=== PATIENT | male | born 1970 | race Caucasian/White ===

== ENCOUNTER 2021-08-31 09:04 | Outpatient (REF) | payer OTHER, SELFPAY ==
[2021-08-31 11:31] LABS: Hemoglobin 15.8 g/dl (14.0-18.0); Mean Corpuscular HGB Conc 34.3 g/dl (31.0-36.0); Mean Corpuscular Hemoglobin 31.6 pg (27.0-33.0); Mean Platelet Volume 10.4 fL (9.4-12.4); Platelet Count 227 X10*3/uL (160-400); Red Cell Distribution Width 13.7 % (11.0-16.0); White Blood Count 5.9 X10*3/uL (4.8-10.8)
[2021-08-31 12:04] LABS: Alanine Aminotransferase 50 U/L (0-40); Alkaline Phosphatase 49 U/L (39-117); Anion Gap 11 (12-20); Aspartate Amino Transferase 38 U/L (5-37); Bilirubin Total 0.7 mg/dL (0.0-1.0); Blood Urea Nitrogen 18 mg/dL (9-16); Calcium 10.4 mg/dL (8.4-10.2); Carbon Dioxide 29 mmol/L (22-29); Chloride 103 mmol/L (96-108); Estimated Glomerular Filt Rate > 60; Glucose Random 99 mg/dL (60-115); Potassium 4.3 mmol/L (3.3-5.1); Sodium 139 mmol/L (135-145); Total Protein 7.9 g/dL (6.5-8.0)
[2021-08-31 12:28] LABS: Albumin Level 4.7 g/dL (3.5-5.0)
== END 2021-08-31 09:05 | disposition home or self-care (01) ==
LOC: HO.LAB 09:04
PROVIDERS: PCP Family Medicine; Referring Provider Family Medicine; Visit Provider Nurse Practitioner Family
DX: Z01.818 Encounter for other preprocedural examination (principal)
CPT/HCPCS: 36415; 80053; 85027

== ENCOUNTER 2021-12-09 06:42 | Day surgery (SDC) | payer OTHER, SELFPAY ==
[2021-12-06 12:32] VITALS: BMI 29.7
--- NOTE | 2021-12-08 09:30 | P.CONAN_ITS ---
Documented by User: Raisa Guevara NP 12/08/21 09:31 HPI - Anesthesia Eval Consult details Narrative: 51yo M for Colonoscopy [facility] Past Medical History Medical History (Updated 12/09/21 @ 08:02 by Esther Kramer RN) Asthma HTN (hypertension) Family History Family History Father Diabetes HTN (hypertension) Mother Complication of surgery Social History Social History (Updated 08/31/21 @ 09:29 by Abby Chaparro) Alcohol intake: current Alcohol intake frequency: holidays/special occasions only Patient Tobacco Use Status: Never used Tobacco Meds Allergies Allergy/AdvReac Type Severity Reaction Status Date / Time seafood Allergy Intermediate Hives Verified 12/09/21 07:48 Home Medications Medication Instructions Recorded Confirmed Last Taken Type albuterol sulfate 90 mcg/actuation 2 puff INHALATION QID 08/30/21 Unknown History aerosol inhaler (ProAir HFA) cholecalciferol (vitamin D3) 50 50 mcg PO DAILY 08/30/21 Unknown History mcg (2,000 unit) capsule fluticasone propionate 50 1 spray INTRANASAL DAILY 08/30/21 Unknown History mcg/actuation nasal spray,suspension (Flonase Allergy Relief) lisinopril 20 mg tablet 20 mg PO DAILY 08/30/21 12/09/21 History loratadine 10 mg tablet (Claritin) 10 mg PO DAILY 08/30/21 Unknown History Exam Exam Date and Time: December 08, 2021 0930 Height,Weight and Vital Signs: Height 5 ft 10 in Weight 93.894 kg Pertinent Lab Results Pertinent Lab Results: Laboratory Tests 08/31/21 08/31/21 10:32 10:32 WBC 5.9 Hgb 15.8 Hct 46.0 Plt Count 227 Sodium 139 Potassium 4.3 Chloride 103 Carbon Dioxide 29 BUN 18 H Creatinine 1.01 Assessment and Plan Assessment Anesthesia Assessment: Chart Reviewed Documented by User: Dion Colunga MD 12/09/21 16:46 [facility] Past Medical History Medical History (Updated 12/09/21 @ 08:02 by Esther Kramer, MAIRA) Asthma HTN (hypertension) Functional capacity: independent ambulation Family History Family History Father Diabetes HTN (hypertension) Mother Complication of surgery Family history of problems with anesthesia: No Surgical History History of Problems with Anesthesia: No Social History Social History (Updated 08/31/21 @ 09:29 by Abby Chaparro) Alcohol intake: current Alcohol intake frequency: holidays/special occasions only Patient Tobacco Use Status: Never used Tobacco Meds Allergies Allergy/AdvReac Type Severity Reaction Status Date / Time seafood Allergy Intermediate Hives Verified 12/09/21 07:48 Home Medications Medication Instructions Recorded Confirmed Last Taken Type albuterol sulfate 90 mcg/actuation 2 puff INHALATION QID 08/30/21 Unknown History aerosol inhaler (ProAir HFA) cholecalciferol (vitamin D3) 50 50 mcg PO DAILY 08/30/21 Unknown History mcg (2,000 unit) capsule fluticasone propionate 50 1 spray INTRANASAL DAILY 08/30/21 Unknown History mcg/actuation nasal spray,suspension (Flonase Allergy Relief) lisinopril 20 mg tablet 20 mg PO DAILY 08/30/21 12/09/21 History loratadine 10 mg tablet (Claritin) 10 mg PO DAILY 08/30/21 Unknown History Exam Airway Mallampati Class: II TM Dist: >3cm Neck ROM: Full Loose/Missing/Broken Teeth: Yes (Cavities , poor dentation ) Heart: RRR Lungs: b/l breath sounds Assessment and Plan Assessment Anesthesia Assessment: Anesthesia Plan Discussed Final Anesthetic Review Family History of Problems with Anesthesia: No History of Problems with Anesthesia: No NPO: Yes ASA Class: II Final Preanesthetic Review: Meds/Allgs Chart Reviewed, Consent Obtained/Reviewed and Anes Risks/Benef Reviewed Patient Risk: Intermediate Procedure Risk: Intermediate Anesthetic Plan Anesthetic Plan: MAC: Disposition: Standard PACU
--- NOTE | 2021-12-09 07:18 | P.HPSUR_ITS ---
Pre-Procedural Eval Section A Date of Service: 12/09/21 Section B Chief Complaint: screening Relevant Family History (Specify if Yes): No Relevant Social History: None Present Medications: see Short Stay Collaborative assessment Medical History: Significant History (Asthma HTN (hypertension)) History of Previous Operations: No relevant previous surgery Allergies: Allergies Allergy/AdvReac Type Severity Reaction Status Date / Time No Known Allergies Allergy Verified 08/31/21 09:19 Review of Systems Sugical H&P ROS: Negative: Constitution, Cardiovascular, Respiratory, Neurological, Psychiatric, Hem-Onc, Allergic/Immunologic, Gastrointestinal, Genitourinary, Musculoskeletal, Integumentary, Endocrine and Eyes/Ears/Nose/Throat Exam Surgical H&P Exam: Normal: HEENT, Normal: Heart, Normal: Lungs, Normal: E xtremities, Normal: Abdomen, Normal: Skin and Normal: Neurological Plan Diagnosis/Plan: Unchanged I have reviewed the history and physical and performed a pertinent physical examination on my patient. No changes have occurred unless specified.
[2021-12-09 07:35] VITALS: BMI 29.1
[2021-12-09 07:39] VITALS: BP 127/72; PULSE 67; RESP 18; TEMP 36.9; O2SAT 98
[2021-12-09] MEDS: Lactated Ringers 1,000 ML 100 ML IVCONT (08:03)
--- NOTE | 2021-12-09 08:53 | P.OP_ITS ---
Operative Note Operative Note Date of Service: 12/09/21 Narrative: Operative Information Procedure Description: Colonoscopy Indication: screening Anesthesia: MAC COLONOSCOPY Instrument: Olympus variable stiffness pediatric scope 190L Colonoscopy Monitoring: Vital signs and clinical assessment, continuous EKG monitoring, Pulse oximetry, Carbon Dioxide monitoring and blood pressure monitoring were done throughout the procedure. Colon withdrawal time was 7 minutes. Procedure: The patient was placed in the left lateral decubitis position and pre-procedure medications were administered. After a digital rectal examination of the ano-rectum, the video colonoscope was inserted into the rectum and advanced through the colon to the cecum/TI. The colonoscope was slowly withdrawn in a retrograde panoramic fashion and the colon mucosa was carefully examined including a retroflexed view of the rectum. Findings and interventions are described below. Procedure Difficulty: easy Findings: Terminal Ileum-normal right sided retroflexion was normal Cecum:normal Ascending Colon: normal Transverse Colon -normal Descending Colon:normal Sigmoid Colon: normal Rectum: Retroflexion with small internal hemorrhoids, grade I Anorectum - normal Colon preparation: Wil[place] Bowel Preparation Scale Right colon; 3 Transverse colon: 2 Left colon; 3 (0 = Unprepared colon segment with mucosa not seen due to solid stool that cannot be cleared. 1 = Portion of mucosa of the colon segment seen, but other areas of the colon segment not well seen due to staining, residual stool and/or opaque liquid. 2 = Minor amount of residual staining, small fragments of stool and/or opaque li quid, but mucosa of colon segment seen well. 3 = Entire mucosa of colon segment seen well with no residual staining, small fragments of stool or opaque liquid) Impression and Post Procedure Diagnosis: internal hemorrhoids Plan: High fiber diet leaflet Avoid straining at stool, epsom salts and sitz bath, anusol supps or cream Repeat Colonoscopy in 10 years or earlier if clinically indicated Above findings were reviewed with the patient and relevant handouts were provided if indicated.
--- NOTE | 2021-12-09 08:53 | PM.OP ---
Brief Operative Note Date of Service: 12/09/21 Pre-op diagnosis: screening colonoscopy Post-op diagnosis: same Procedure: see op note Surgeon: Ric Trevino MD Anesthesia: MAC Was an Digital Media Buyer used for this Procedure?: No Estimated blood loss (mL): 0 Condition: stable Disposition: PACU
[2021-12-09 09:20] VITALS: BP 81/51; PULSE 88; RESP 16; TEMP 36.6; O2SAT 97
[2021-12-09 09:35] VITALS: BP 102/64; PULSE 82; RESP 16; TEMP 36.6; O2SAT 97
== END 2021-12-09 10:10 | disposition home or self-care (01) ==
PROVIDERS: PCP Family Medicine; Visit Provider Internal Medicine Gastroenterology
PROC: 0DJD8ZZ Inspection of Lower Intestinal Tract, Via Natural or Artificial Opening Endoscopic (ICD-10-PCS; CPT 45378; principal; 2021-12-09 08:30)
DX: Z12.11 Encounter for screening for malignant neoplasm of colon (principal); K64.0 First degree hemorrhoids; J45.909 Unspecified asthma, uncomplicated; I10 Essential (primary) hypertension; Z79.899 Other long term (current) drug therapy
CPT/HCPCS: 45378

== ENCOUNTER → 2021-12-27 14:06 | Outpatient (BNVA) | payer OTHER, SELFPAY | PROVIDERS: PCP Family Medicine; Referring Provider Family Medicine; Visit Provider Nurse Practitioner Family | DX: Z13.89 Encounter for screening for other disorder (principal) ==

== ENCOUNTER 2023-09-01 10:52 | Outpatient (REF) | payer OTHER, SELFPAY | END 2023-09-01 10:53 | disposition home or self-care (01) | LOC: HO.HHCL 10:52 | PROVIDERS: Visit Provider Family Medicine | DX: Z11.1 Encounter for screening for respiratory tuberculosis (principal) | CPT/HCPCS: 36415; 86481 ==

== ENCOUNTER 2023-09-07 11:57 | Outpatient (REF) | payer OTHER, SELFPAY | END 2023-09-07 11:58 | disposition home or self-care (01) | LOC: HO.HHCL 11:57 | PROVIDERS: Visit Provider Family Medicine | DX: Z00.00 Encounter for general adult medical examination without abnormal findings (principal) | CPT/HCPCS: 36415; 86481 ==

== ENCOUNTER 2024-01-30 09:21 | Outpatient (REF) | payer OTHER, SELFPAY ==
[2024-01-30 11:55] LABS: Hematocrit 46.9 % (42.0-52.0); Hemoglobin 15.9 g/dl (14.0-18.0); Mean Corpuscular HGB Conc 33.9 g/dl (31.0-36.0); Mean Corpuscular Hemoglobin 31.9 pg (27.0-33.0); Mean Platelet Volume 10.8 fL (9.4-12.4); Platelet Count 195 X10*3/uL (160-400); Red Blood Count 4.99 X10*6/uL (4.60-5.80); Red Cell Distribution Width 13.8 % (11.0-16.0); White Blood Count 6.8 X10*3/uL (4.8-10.8)
[2024-01-30 12:08] LABS: Estimated Average Glucose 111 mg/dL; Hemoglobin A1c % 5.5 % (<6.0)
[2024-01-30 12:27] LABS: Alanine Aminotransferase 31 U/L (0-40); Albumin Level 4.8 g/dL (3.5-5.0); Alkaline Phosphatase 44 U/L (39-117); Anion Gap 15 (12-20); Aspartate Amino Transferase 23 U/L (5-37); Bilirubin Direct 0.2 mg/dL (0.0-0.5); Bilirubin Total 0.8 mg/dL (0.0-1.0); Blood Urea Nitrogen 18 mg/dL (9-16); Carbon Dioxide 29 mmol/L (22-29); Chloride 100 mmol/L (96-108); Cholesterol 212 mg/dL (<200); Creatinine Urine 52.43 mg/dL; Estimated Glomerular Filt Rate > 60; Free T4 (Free Thyroxine) 0.79 ng/dL (0.71-1.85); Glucose Random 117 mg/dL (60-115); HDL Cholesterol 49 mg/dL (>40); LDL Cholesterol Calculated 119 mg/dL (<100); Microalbumin Urine < 5.0 mg/L; Potassium 4.5 mmol/L (3.3-5.1); Sodium 139 mmol/L (135-145); Thyroid Stimulating Hormone 1.55 uIU/mL (0.32-4.0); Total Protein 7.9 g/dL (6.5-8.0); Triglycerides 221 mg/dL (<150); Vitamin D 25-OH Total 69.7 ng/mL (>30)
[2024-01-30 14:30] LABS: CT PCR NOT DETECTED (Not Detect.); NG PCR NOT DETECTED (Not Detect.)
[2024-01-31 09:05] LABS: Hepatitis A Antibody IgG Nonreactive (Nonreactive); ~Hepatitis A Antibody IgG 0.46 S/CO (0.00-0.99)
[2024-01-31 09:28] LABS: HBS Num1 6.21 mIU/mL (0-7.99); HBc Num1 0.09 S/CO (0.00-0.79); HBsAGNum1 0.27 S/CO (0.00-0.99); HIV AB/AG Nonreactive (Nonreactive); HIV Num 1 0.06 S/CO (0.00-0.99); Hepatitis B Core Antibody Nonreactive (Nonreactive); Hepatitis B Surface Antigen Negative (Negative); ~Hepatitis B Surface Antibody NONREACTIVE (Nonreactive); ~Hepatitis C Antibody Nonreactive (Nonreactive)
[2024-01-31 12:44] LABS: RPR Rapid Plasma Reagin NON-REACTIVE (NON-REACTIVE)
== END 2024-01-30 09:22 | disposition home or self-care (01) ==
LOC: HO.HHCL 09:21
PROVIDERS: Visit Provider Family Medicine
DX: Z00.00 Encounter for general adult medical examination without abnormal findings (principal); Z11.4 Encounter for screening for human immunodeficiency virus [HIV]; I10 Essential (primary) hypertension; E78.49 Other hyperlipidemia; J30.9 Allergic rhinitis, unspecified; R73.03 Prediabetes; Z20.2 Contact with and (suspected) exposure to infections with a predominantly sexual mode of transmission
CPT/HCPCS: 0353U; 36415; 80048; 80061; 80076; 82043; 82306; 82570; 83036; 84439; 84443; 85027; 86592; 86704; 86706; 86708; 86803; 87340; 87389

== ENCOUNTER 2024-10-07 15:02 | Outpatient (REF) | payer OTHER, SELFPAY ==
--- OUTSIDE RECORDS SUMMARY | 2024-10-07 16:34 | XMS_ITS | Encounter Summary ---
Author Organization [employer] Address [address] [facility] 7[address] [place] [address] Care Team Providers Care Clock Repair Technician Name Role Phone Cortney Fritz DO Primary Care Provider [phone] Encounter Details Date Type Department Care Team (Latest Contact Info) Description 10/07/2024 Travel Social History Tobacco Use Types Packs/Day Years Used Date Smoking Tobacco: Never Passive Smoke Exposure: Never Smokeless Tobacco: Never Alcohol Use Standard Drinks/Week Comments Yes 0 (1 standard drink = 0.6 oz pur e alcohol) Depression Answer Date Recorded Patient Health Questionnaire-9 Score 0 05/23/2023 Housing Stability Answer Date Recorded What is your housing situation today? I have ira mack 07/10/[address] you li ve. Do you have problems with any of the following? None of the above 07/10/2023 Food Insecurity Answer Date Recorded Within the past 12 months, y ou worried that your food would run out before you got money to buy more: Never True 07/10/2023 Within the past 12 months,th e food you bought just didn't last and you didn't have enough money to get more: Never True 02/2023 Transportation Answer Date Recorded In the past 12 months, has l ack of transportation kept you from medical appts, meetings, work or from getting things needed for daily living? No 07/10/2023 Utilities Answer Date Recorded In the past 12 months, has t he electric, gas, oil or water company threatened to shut off services in your home? No 07/10/2023 Depression Answer Date Recorded Patient Health Questionnaire-2 Score 0 05/23/2023 Sex and Gender Information Value Date Recorded Sex Assigned at Male 07/04/2022 10:19 AM EDT Legal Sex Male 10:19 AM EDT Gender Identity Male 07/04/2022 10:19 AM EDT Sexual Orientation Straight 07/04/2022 10 :19 AM EDT documented as of this encounter Plan of Treatment Not on file documented as of this encounter Visit Diagnoses Not on filedocumented in this encounter Additional Health Concerns Assessment Noted Time PHQ-9 Depression Total Score: 0 05/23/20 23 10:39 AM EDT documented as of this encounter Care Teams Clock Repair Technician Relationship Specialty Start Date End Date Cortney Fritz DO [address] [place] [id number] PCP - General Family Medicine 03/21/14 documented as of this encounter
--- OUTSIDE RECORDS SUMMARY | 2024-10-07 16:34 | XMS_ITS | Encounter Summary ---
Author Organization [employer] Address [address] [place] [address] [address] [place] [address] Care Team Providers Care Retanned Leather Roller Name Role Phone MichaelCortney ellison Primary Care Provider + [phone] Reason for Visit * Reason Comments Annual Exam Encounter Details Date Type Department Care Team ([facility] st Contact Info) Description 10/07/2024 2:00 PM EST Office Visit [facility] MEDICINE [address] [place], [place] [phone] [facility] [address] [place], [place] [phone] Healthcare maintenance (Primary Dx); Encounter for immunization Social History Tobacco Use Types Packs/Day Years [...] AM EDT documented as of this encounter Last Filed Vital Signs Vital Sign Reading Time Taken Comments Blood Pressure 132/90 10/07/2024 2:21 PM EST Pulse 90 10/07/2024 2:21 PM EST Temperature 36.3 ??C (97.4 ??F) 10/07/2024 2:21 PM ES T Respiratory Rate 14 10/07/2024 2:21 PM EST Oxygen Saturation - - Inhaled Oxygen Concentration - - Weight 90.1 kg (198 lb 9.6 oz) 10/07/2024 2:21 P M EST Height 175.9 cm (5' 9.25 ) 10/07/2024 2:21 PM ES T Body Mass Index 29.12 10/07/2024 2:21 PM EST documented in this encounter Plan of Treatment Scheduled Orders Name Type Priority Associated Diagnoses Orde r Schedule PSA,Total Lab Routine Healthcare maintenance Expected: 10/07/2024, Expires: 10/07/2025 documented as of this encounter Visit Diagnoses Diagnosis Healthcare maintenance- Primary Encounter for immunization documented in this encounter Additional Health Concerns Assessment Noted Time PHQ-9 Depression Total Score: 0 05/23/20 23 10:39 AM EDT documented as of this encounter Care Teams Retanned Leather Roller Relationship Specialty Start Date End Date Cortney Fritz DO [address] [place] [id number] PCP - General Family Medicine 03/21/14 documented as of this encounter
--- OUTSIDE RECORDS SUMMARY | 2024-10-07 16:34 | XMS_ITS | Encounter Summary ---
Author Organization [employer] Address [address] [facility] 7t [place] [address] Care Team Providers Care Mill Laborer Name Role Phone oCrtney Fritz DO Primary Care Provider + [phone] Reason for Visit * Reason Comments Med Refill Encounter Details Date Type Department Care Team (Late st Contact Info) Description 10/02/2024 Refill [facility] MEDICINE [address] [place], [place] [phone] Cortney Fritz DO [address] [place], [place] [phone] Chronic allergic rhinitis Social History Tobacco Use Types Packs/Day Years [...] as of this encounter Visit Diagnoses Diagnosis Chronic allergic rhinitis documented in this encounter Additional Health Concerns Assessment Noted Time PHQ-9 Depression Total Score: 0 05/23/20 23 10:39 AM EDT documented as of this encounter Care Teams Mill Laborer Relationship Specialty Start Date End Date Cortney Fritz DO [address] [place] [address] PCP - General Family Medicine 03/21/14 documented as of this encounter
--- OUTSIDE RECORDS SUMMARY | 2024-10-07 16:35 | XMS_ITS | Encounter Summary ---
Author Organization [employer] Address [address] [facility] [address] [place] [address] Care Team Providers Care Recreation Specialist Name Role Phone Cortney Fritz DO Primary Care Provider + [phone] Reason for Visit * Reason Comments Pre-visit Planning (Unable to reach for PVP screening, LVM) Encounter Details Date Type Department Care Team ([facility] st Contact Info) Description 09/25/2024 Patient Outreach [facility] MEDICINE [address] [place], [place] [phone] Cortney Fritz DO [address] [place] [address] Pre-visit Planning ((Unable to reach for PVP screening, LVM)) Social History Tobacco Use Types Packs/Day Years [...] AM EDT documented as of this encounter Progress Notes * aKreen Rao - 09/25/2024 9:13 AM EST SANDY Mathur placed successful outbound call to patient for pre-visit planning. Patient name and confirmed. Patient confirms appt date and time, and has transportation. Biggest concern for appointment at this time is none Patient advised to bring to appointment a photo id and insurance card. Appropriate screenings completed in anticipation of appointment. documented in this encounter Plan of Treatment Not on file documented as of this encounter Visit Diagnoses Not on filedocumented in this encounter Additional Health Concerns Assessment Noted Time PHQ-9 Depression Total Score: 0 05/23/20 23 10:39 AM EDT documented as of this encounter Care Teams Recreation Specialist Relationship Specialty Start Date End Date Cortney Fritz DO [address] [place] [id number] PCP - General Family Medicine 03/21/14 documented as of this encounter
--- OUTSIDE RECORDS SUMMARY | 2024-10-07 16:35 | XMS_ITS | Encounter Summary ---
Author Organization [employer] Address [address] [facility] 7t [place] [address] Care Team Providers Care Rn Private Duty Name Role Phone Cortney Fritz DO Primary Care Provider + [phone] Encounter Details Date Type Department Care Team ([facility] st Contact Info) Description 07/24/2023 Telephone [facility] MEDICINE [address] [place], [place] [phone] Cortney Fritz DO [address] [place] [address] Social History Tobacco Use Types Packs/Day Years Used Date Smoking Tobacco: Never Passive Smoke Exposure: Never Smokeless Tobacco: Never Alcohol Use Standard Drinks/Week Comments Yes 0 (1 standard drink = 0.6 oz pur e alcohol) Depression Answer Date Recorded Patient Health Questionnaire-9 Score 0 05/23/2023 Housing Stability Answer Date Recorded What is your housing situation today? I have irabenny mack 07/10/[address] you [...] documented as of this encounter Care Teams Rn Private Duty Relationship Specialty Start Date End Date Cortney Fritz DO [address] [place] [address] PCP - General Family Medicine 03/21/14 documented as of this encounter
--- OUTSIDE RECORDS SUMMARY | 2024-10-07 16:35 | XMS_ITS | Clinical Summary ---
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 By inhalation route every 4 hours 02/06/20 20 Active fluticasone (Flonase) 50 MCG/ACT nasal sprayIndications :Chronic allergic rhinitis Administer 2 sprays into each nostril in the morning. 48 g 3 09/01/20 23 Active lisinopril-hydro CHLOROthiazide 20-25 MG tabletIndication s:Essential hypertension TAKE 1 TABLET BY MOUTH EVERY DAY IN THE MORNING 90 tablet 3 11/29/19 24 Active cholecalciferol 50 MCG (1999) capsuleIndicatio ns:Healthcare maintenance TAKE 1 CAPSULE (50 MCG) BY MOUTH IN THE MORNING 90 capsule 3 11/29/19 24 Active loratadine (Claritin) 10 MG tabletIndication s:Chronic allergic rhinitis TAKE 1 TABLET BY MOUTH EVERY DAY IN THE MORNING 90 tablet 3 10/03/19 25 Active loratadine (Claritin) 10 MG tabletIndication s:Chronic allergic rhinitis Take 1 tablet (10 mg) by mouth in the morning. 90 tablet 3 09/01/20 23 025 Discontinued Active Problems Problem Noted Date Diagnosed Date BMI 28.0-28.9,adult 09/01/2023 Healthcare maintenance 11/16/2022 Pre-diabetes 11/16/2022 Hyperlipidemia 10/31/2018 Allergic rhinitis 07/22/2015 Essential hypertension 07/22/2015 Resolved Problems Problem Noted Date Diagnosed Date Resolved Date Elevated fasting glucose 07/22/2015 Encounters Date Type Department Care Team Description 10/07/2024 2:00 PM EST Office Visit [facility] [address] [place] [address] [place] FNP Healthcare maintenance (Primary Dx); Encounter for immunization 10/07/2024 Travel 10/02/2024 Refill [facility] [address] [place] [phone] Cortney Fritz DO Chronic allergic rhinitis 09/25/2024 Patient Outreach [facility] [address] [place] [address] Cortney Fritz DO Pre-visit Planning ((Unable to reach for PVP screening, LVM)) from Last 3 Months Immunizations Name Administration Dates Next Due Hep B, adult 03/16/2011,04/02/2010,02/24/2010 Influenza injectable quadriv alent preservative free 09/01/2023,08/04/2021,07/28/2020 Influenza, IIV3, injectable 04/27/2011 Moderna Covid-19 Vaccine 12+ 07/20/2021,10/22/19 21,09/24/2020 Pneumococcal Conjugate PCV 20 10/07/2024 TD (adult), 2 Lf tetanus tox oid, preservative free, adsorbed 08/04/2021 Tdap 03/16/2011 Zoster, Recombinant 08/20/2021 Family History Medical History Relation Name Comments Coronary artery disease Father Diabetes Father Hyperlipidemia Father Hypertension Father Arthritis Mother Colon cancer Mother Hypertension Mother Relation Name Status Comments Father Mother Social History Tobacco Use Types Packs/Day Years Used Date Smoking Tobacco: Never Passive Smoke Exposure: Never Smokeless Tobacco: Never Tobacco Cessation:Counseling Given: Not Answered Alcohol Use Standard Drinks/Week Comments Yes 0 [...] Orientation Straight 07/04/2022 10 :19 AM EDT Last Filed Vital Signs Vital Sign Reading Time Taken Comments Blood Pressure 132/90 10/07/2024 2:21 PM EST Pulse 90 10/07/2024 2:21 PM EST Temperature 36.3 ??C (97.4 ??F) 10/07/2024 2:21 PM ES T Respiratory Rate 14 10/07/2024 2:21 PM EST Oxygen Saturation 98% 01/30/2024 8:55 AM EDT Inhaled Oxygen Concentration - - Weight 90.1 kg (198 lb 9.6 oz) 10/07/2024 2:21 P M EST Height 175.9 cm (5' 9.25 ) 10/07/2024 2:21 PM ES T Body Mass Index 29.12 10/07/2024 2:21 PM EST Plan of Treatment Health Maintenance Due Date Last Done Comments CT Colonography 1970 FIT DNA/Cologuard 1970 FIT 1970 FOBT 1970 Sigmoidoscopy 1970 Alcohol/Substance Use Screening 1982 Zoster Vaccines (2 of 2) 10/15/2021 08/20/2021 COVID-19 Vaccine ( season) 2024 07/20/2021, 10/22/2020, 09/24/2020 Influenza Vaccine (#1) 2024 , 08/04/2021, 07/28/2020, Additional history exists Depression Screening 05/23/2024 05/23/2023, 05/23/20 23 SDOH Screening 05/23/2024 05/23/2023 Tobacco Screening 01/29/2025 01/30/2024 Lipid Panel 01/29/2029 01/30/2024, 050 01/2023, 12/27/2021 DTaP/Tdap/Td Vaccines (3 - Td or Tdap) 08/04/2031 08/04/2021, 03/16/2011 Colonoscopy 12/10/2031 12/09/2021 Colorectal Cancer Screening 12/10/2031 RSV Patients and Patients Aged 60 years or older (1 - 1-dose 75+ series) 2045 Hepatitis B Vaccines Completed 03/16/2011, 04/02/2010, 02/24/2010 HIV Screening Completed 01/30/2024, 050 01/2023, 12/27/2021 Hepatitis C Screening Completed 01/30/2024 , 01/06/2023, 12/27/2021 Pneumococcal Vaccine: 50+ Years Completed 10/07/2024 HIB Vaccines Aged Out No longer eligi ble based on patient's age to complete this topic HPV Vaccines Aged Out No longer eligi ble based on patient's age to complete this topic Hepatitis A Vaccines Aged Out No long er eligible based on patient's age to complete this topic IPV Vaccines Aged Out No longer eligi ble based on patient's age to complete this topic Meningococcal Vaccine Aged Out No marco ginette eligible based on patient's age to complete this topic RSV under 20 months Aged Out No longe r eligible based on patient's age to complete this topic Rotavirus Vaccines Aged Out No longer eligible based on patient's age to complete this topic Procedures Procedure Name Priority Date/Time Associated Diagnosis Comments HEPATITIS C AB W/REFL TO HCV RNA, QN, PCR Routine 01/30/2024 9:23 AM EDT Essential hypertension Other hyperlipidemia Pre-diabetes Chronic allergic rhinitis Healthcare maintenance HIV 1/2 ANTIGEN/ANTIBODY, FOURTH GENERATION W/RFL Routine 01/30/2024 9:23 AM EDT Essential hypertension Other hyperlipidemia Pre-diabetes Chronic allergic rhinitis Healthcare maintenance LIPID PANEL, STANDARD Routine 01/30/2024 9:23 AM EDT Essential hypertension Other hyperlipidemia Pre-diabetes Chronic allergic rhinitis Healthcare maintenance HM COLONOSCOPY Routine 12/09/2021 from Last 3 Months or Most Recently Relevant to Health Maintenance Results * Hepatitis C Antibody with Reflex to HCV, RNA, Quantitative, Real-Time PCR (01/30/2024 9:23 AM EDT) Hepatitis C Antibody Nonreactive Nonreactive [facility] Comment:Antibodies to HCV no t detected; does not exclude early acuteHCV infection. Blood Venous blood specimen / Unknown 01/30/2024 9:23 AM EDT 01/30/2024 11:27 AM EDT Cortney Fritz DO LAB BLOOD ORDERABLES Final R esult [facility] [address] [place] [phone] * HIV-1/2 Antigen and Antibodies, Fourth Generation, with Reflexes (01/30/2024 9:23 AM EDT) HIV AB/AG Nonreactive Nonreactive [facility] Comment:HIV-1 p24 Ag and/or HIV-1/HIV-2 Ab not detected.A test result that is nonreactive does not exclude thepossibility of exposure to or infection with HIV-1 and/orHIV-2. Nonreactive results in this assay for individualswith prior exposure to HIV-1 and/or HIV-2 may be due toantigen and antibody levels that are below the limit ofdetection of this assay.The [employer] HIV Ag/Ab Combo assay result andsupplemental assay results should be interpreted inconjunction with the patient's clinical presentation,history and other laboratory results. If the results areinconsistent with clinical evidence, additional testing issuggested to confirm the result. Blood Venous blood specimen / Unknown 01/30/2024 9:23 AM EDT 01/30/2024 11:27 AM EDT us Cortney Fritz DO LAB BLOOD ORDERABLES Final R esult Performing Organization Address City/[facility]/ZIP Co de Phone Number [facility] [address] [place] [address] [phone] * (ABNORMAL) Lipid Panel, Standard (01/30/2024 9:23 AM EDT) Triglycerides 221(H) <150 mg/dL [facility] Comment:Desirable Triglyceri de: less than 150 mg/dLBorderline High Triglyceride 150-199 mg/dLHigh Triglyceride: 200-499 mg/dLVery High Triglyceride: greater than or equal to 5OO mg/dL Cholesterol 212(H) <200 mg/dL [facility] Comment:Desirable Cholestero l: less than 200 mg/dLBorderline High Cholesterol: 200-239 mg/dLHigh Cholesterol: greater than 239 mg/dL LDL Cholesterol Calculated 119(H) <100 mg/dL [facility] Comment:Desirable LDL: less than 100 mg/dLNear Optimal/Above Optimal LDL: 110- 129 mg/dLBorderline High LDL: 130-159 mg/dLHigh LDL: 160-189 mg/dLVery High LDL: greater than or equal to 190 mg/dL HDL Cholesterol 49 >40 mg/dL [facility] Comment:Desirable HDL: great er than 40 mg/dL Note: This HDL assay may give artificially low results in patients with liver disease. 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
--- OUTSIDE RECORDS SUMMARY | 2024-10-07 16:35 | XMS_ITS | Clinical Summary ---
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 Role Phone Unavailable Primary Care Provider Unavailabl e Social History Tobacco Use Types Packs/Day Years Used Date Smoking Tobacco: Never Assessed Sex and Gender Information Value Date Recorded Sex Assigned at Not on file Gender Identity Not on file Sexual Orientation Not on file Plan of Treatment Health Maintenance Due Date Last Done Comments DTaP,Tdap,and Td Vaccines (1 - Tdap) 1989 Hepatitis B Vaccines (1 of 3 - 19+ 3-dose series) 1989 Zoster Vaccines (1 of 2) 2020 Cholesterol Screening (Lipid Panel) 10/03/2023 Colorectal Cancer Screening: Colonoscopy 10/03/2023 Depression Screening 10/03/2023 HIV Screening 10/03/2023 Hepatitis C Screening 10/03/2023 Social Influencers of Health Screening 10/03/2023 COVID-19 Vaccine (2023-2 5 season) 2024 Influenza Vaccine (#1) 2024 HIB Vaccines Aged Out No longer eligi [...] on patient's age to complete this topic MMR Vaccines Aged Out No longer eligi ble based on patient's age to complete this topic Meningococcal ACWY Vaccine Aged Out N o longer eligible based on patient's age to complete this topic Pneumococcal Vaccine: Pediat rics (0 to 5 Years) and At-Risk Patients (6 to 64 Years) Aged Out No longer eligible b ased on patient's age to complete this topic RSV Immunization Patients Un kailyn 20 months Aged Out No longer eligible b ased on patient's age to complete this topic Varicella Vaccines Aged Out No longer eligible based on patient's age to complete this topic
[2024-10-07 16:54] LABS: Prostate Specific Antigen 0.64 ng/mL (<0.05-4.0)
== END 2024-10-07 15:03 | disposition home or self-care (01) ==
LOC: HO.HHCL 15:02
PROVIDERS: Visit Provider Registered Nurse
DX: Z12.5 Encounter for screening for malignant neoplasm of prostate (principal)
CPT/HCPCS: 36415; 84153

== ENCOUNTER 2025-09-03 09:55 | Outpatient (REF) | payer SELFPAY ==
[2025-09-03 11:47] LABS: Hematocrit 44.0 % (42.0-52.0); Hemoglobin 14.7 g/dl (14.0-18.0); Mean Corpuscular HGB Conc 33.4 g/dl (31.0-36.0); Mean Corpuscular Hemoglobin 30.3 pg (27.0-33.0); Mean Corpuscular Volume 90.7 fL (80.0-98.0); NRBC Abs Auto 0.000 X10*3/uL (0.0-0.012); NRBC Pct Auto 0.0 /100WBC (0.0-0.2); Platelet Count 184 X10*3/uL (160-400); Red Blood Count 4.85 X10*6/uL (4.60-5.80); White Blood Count 5.6 X10*3/uL (4.8-10.8)
[2025-09-03 14:53] LABS: Alanine Aminotransferase 52 U/L (0-40); Albumin Level 4.9 g/dL (3.5-5.0); Alkaline Phosphatase 41 U/L (39-117); Anion Gap 11 (12-20); Aspartate Amino Transferase 39 U/L (5-37); Blood Urea Nitrogen 19 mg/dL (9-16); Calcium 10.2 mg/dL (8.4-10.2); Carbon Dioxide 29 mmol/L (22-29); Chloride 103 mmol/L (96-108); Cholesterol 195 mg/dL (<200); Estimated Glomerular Filt Rate > 60; HDL Cholesterol 41 mg/dL (>40); Potassium 4.4 mmol/L (3.3-5.1); Sodium 139 mmol/L (135-145); Total Protein 7.8 g/dL (6.5-8.0); Triglycerides 67 mg/dL (<150)
[2025-09-03 15:00] LABS: Free T4 (Free Thyroxine) 0.90 ng/dL (0.71-1.85); Thyroid Stimulating Hormone 1.30 uIU/mL (0.32-4.0)
[2025-09-04 05:28] LABS: HBS Num1 3.77 mIU/mL (0-7.99); HBsAGNum1 0.36 S/CO (0.00-0.99); HIV Num 1 0.05 S/CO (0.00-0.99); Hepatitis B Surface Antigen Negative (Negative); ~HepC Num1 0.24 S/CO (0.00-0.79); ~Hepatitis B Surface Antibody NONREACTIVE (Nonreactive); ~Hepatitis C Antibody Nonreactive (Nonreactive)
== END 2025-09-03 09:56 | disposition home or self-care (01) ==
LOC: HO.HHCL 09:55
PROVIDERS: PCP Family Medicine; Visit Provider Family Medicine
DX: Z11.4 Encounter for screening for human immunodeficiency virus [HIV] (principal); Z20.2 Contact with and (suspected) exposure to infections with a predominantly sexual mode of transmission; I10 Essential (primary) hypertension; Z13.21 Encounter for screening for nutritional disorder; Z13.1 Encounter for screening for diabetes mellitus
CPT/HCPCS: 36415; 80048; 80061; 80076; 82043; 82306; 82570; 83036; 84439; 84443; 85027; 86592; 86706; 86803; 87340; 87389